=== PATIENT | male | born 1990 | race Hispanic/Latino ===

== ENCOUNTER 2022-06-02 13:40 | Emergency (ER) | payer BC, OTHER ==
[~2022-06-02] VITALS: Ht 167.6 cm; Wt 97.5 kg
[2022-06-02 13:45] VITALS: BP 144/99
[2022-06-02] MEDS ORDERED: DICL50TA9 PO (17:35)
== END 2022-06-02 17:57 | disposition home or self-care (01) ==
LOC: EDH 13:40
DX: S43.402A Unspecified sprain of left shoulder joint, initial encounter (principal); H69.90 Unspecified Eustachian tube disorder, unspecified ear; X58.XXXA Exposure to other specified factors, initial encounter; Y93.89 Activity, other specified; Y92.89 Other specified places as the place of occurrence of the external cause; Y99.8 Other external cause status
CPT/HCPCS: 73030